=== PATIENT | female | born 1970 | race Caucasian/White ===

== ENCOUNTER 2018-05-26 07:40 | Emergency (ER) | payer MEDICAID ==
[~2018-05-26] VITALS: Ht 165.1 cm; Wt 61.0 kg
[2018-05-26 08:38] LABS: HEMATOCRIT 41.9 % (37.0-47.0); HEMOGLOBIN 13.8 g/dl (12.0-16.0); IMMATURE GRANULOCYTES 0.2 % (0.0-5.0); MEAN CELL VOLUME 111.7 fL CALC (80.0-100.0); MEAN CORPUSCULAR HGB 36.8 pG CALC (26.0-32.0); MEAN CORPUSCULAR HGB CONC 32.9 g/L CALC (32.0-36.0); NEUT# 2.71 thou/uL (2.00-7.15); RED BLOOD COUNT 3.75 mill/uL (4.20-5.60); RED CELL DISTRI WIDTH 18.6 % (11.5-15.5); URINE BLOOD DIPSTICK TRACE-LYSED (NEGATIVE); URINE COLOR BROWN; URINE GLUCOSE - DIPSTICK NEGATIVE (NEGATIVE); URINE KETONE 15 mg/dL (NEGATIVE); URINE LEUK ESTERASE TRACE (NEGATIVE); URINE PH 6.5 (4.5-8.0); URINE PROTEIN - DIPSTICK TRACE mg/dL (NEG-TRACE); URINE SPECIFIC GRAVITY 1.015
[2018-05-26 08:50] LABS: ALBUMIN 2.2 g/dL (3.2-5.0); ALKALINE PHOSPHATASE 127 u/l (38-126); ANION GAP 12 (6-22 (CALC)); BUN 7 mg/dL (7-17); BUN/CREATININE RATIO 14 (12-20 (CALC)); CARBON DIOXIDE 23 mmol/l (22-30); CHLORIDE 102 mmol/l (95-108); CREATININE 0.5 mg/dL (0.5-1.0); GFR > 60 ML/MIN (>=60 (CALC)); GFR FOR AFR.AMER. > 60 ML/MIN (>=60 (CALC)); POTASSIUM 3.5 mmol/l (3.5-5.1); SGOT/AST 65 u/l (14-36); SODIUM 133 mmol/l (137-146)
[2018-05-26 08:51] LABS: INTERNATIONAL NORMALIZED RATIO 2.3 RATIO (0.7-1.3); PROTHROMBIN TIME 23.5 SECONDS (9.0-12.5); URINE BILIRUBIN - DIPSTICK LARGE (NEGATIVE); URINE NITRITE - DIPSTICK POSITIVE (Negative)
[2018-05-26 08:52] LABS: URINE SQUAMOUS EPITHELIAL CELL FEW EPI/hpf (0-FEW)
[2018-05-26 08:56] LABS: URINE RBC 25-50 RBC/hpf (0-5)
[2018-05-26 08:57] LABS: URINE CALCIUM OXALATE CRYSTALS FEW lpf; URINE WBC 0-2 WBC/hpf (0-5)
[2018-05-26 10:59] VITALS: BP 167/69
== END 2018-05-26 11:05 | disposition short-term general hospital (02) ==
LOC: ED 07:40
PROVIDERS: Family Medicine
DX: R18.8 Other ascites (principal); R10.84 Generalized abdominal pain; R06.02 Shortness of breath

== ENCOUNTER 2018-06-13 19:12 | Emergency (ER) | payer MEDICAID ==
[~2018-06-13] VITALS: Ht 165.1 cm; Wt 42.0 kg
[2018-06-13 20:35] LABS: URINE BLOOD DIPSTICK TRACE-INTACT (NEGATIVE); URINE GLUCOSE - DIPSTICK 100 mg/dL (NEGATIVE); URINE KETONE TRACE mg/dL (NEGATIVE); URINE LEUK ESTERASE NEGATIVE (NEGATIVE); URINE PROTEIN - DIPSTICK 30 mg/dL (NEG-TRACE); URINE UROBILINOGEN - DIPSTICK >=8.0 E.U./dL (0.2)
[2018-06-13 20:36] LABS: URINE BILIRUBIN - DIPSTICK LARGE (NEGATIVE); URINE NITRITE - DIPSTICK POSITIVE (Negative)
[2018-06-13 20:47] LABS: ALBUMIN 2.2 g/dL (3.2-5.0); ALKALINE PHOSPHATASE 120 u/l (38-126); ANION GAP 12 (6-22 (CALC)); BILIRUBIN, TOTAL 16.9 mg/dL (0.0-1.4); BUN 24 mg/dL (7-17); BUN/CREATININE RATIO 25 (12-20 (CALC)); CARBON DIOXIDE 24 mmol/l (22-30); CHLORIDE 96 mmol/l (95-108); GFR 60 ML/MIN (>=60 (CALC)); GFR FOR AFR.AMER. > 60 ML/MIN (>=60 (CALC)); POTASSIUM 4.4 mmol/l (3.5-5.1); SGOT/AST 71 u/l (14-36); SODIUM 128 mmol/l (137-146); TOTAL PROTEIN 5.5 g/dL (6.3-8.2)
[2018-06-13 20:48] LABS: IMMATURE GRANULOCYTES 0.5 % (0.0-5.0); MEAN CORPUSCULAR HGB 37.8 pG CALC (26.0-32.0); MEAN CORPUSCULAR HGB CONC 34.4 g/L CALC (32.0-36.0); NEUT# 7.63 thou/uL (2.00-7.15); RED BLOOD COUNT 2.91 mill/uL (4.20-5.60); RED CELL DISTRI WIDTH 18.5 % (11.5-15.5)
[2018-06-13 20:51] LABS: ACT PARTIAL THROMBO TIME 51.6 SECONDS (20.0-32.5); INTERNATIONAL NORMALIZED RATIO 2.1 RATIO (0.7-1.3); PROTHROMBIN TIME 21.6 SECONDS (9.0-12.5)
[2018-06-13 21:04] LABS: BARBITURATES NEGATIVE (NEGATIVE); COCAINE POSITIVE (NEGATIVE); METHADONE NEGATIVE (NEGATIVE); OXCYCODONE NEGATIVE (NEGATIVE); TETRAHYDROCANNABIONOL NEGATIVE (NEGATIVE); TRICYLIC ANTIDEPRESSANTS NEGATIVE (NEGATIVE)
[2018-06-13 21:23] LABS: URINE COLOR DK. YELLOW
[2018-06-13 21:24] LABS: URINE BACTERIA FEW hpf; URINE SQUAMOUS EPITHELIAL CELL FEW EPI/hpf (0-FEW); URINE WBC 0-2 WBC/hpf (0-5)
[2018-06-14] MEDS ORDERED: CIPROFLOXACN500 MG PO ×2 (06:20→06:22)
[2018-06-14] MEDS ORDERED: METRONIDAZOL500 MG PO ×2 (06:20→06:22)
[2018-06-14 08:17] VITALS: BP 107/58
[2018-06-14] MEDS ORDERED: KRISTALOSE20 GM PO (08:39)
== END 2018-06-14 08:17 | disposition short-term general hospital (02) ==
LOC: ED 19:12
DX: R18.8 Other ascites (principal); K74.69 Other cirrhosis of liver; R94.31 Abnormal electrocardiogram [ECG] [EKG]; K52.9 Noninfective gastroenteritis and colitis, unspecified; R53.83 Other fatigue; R53.1 Weakness; R17 Unspecified jaundice
CPT/HCPCS: Q9967